=== PATIENT | male | born 1950 | race Caucasian/White ===

== ENCOUNTER → 2020-07-15 13:42 | Outpatient (BNVA) | payer BC, SELFPAY | PROVIDERS: PCP Internal Medicine; Visit Provider Urology | DX: Z76.89 Persons encountering health services in other specified circumstances (principal) ==

== ENCOUNTER 2022-02-26 06:43 | Outpatient (REF) | payer BC, SELFPAY ==
[2022-02-26 11:29] LABS: MANUAL DIFF FLAG NO
[2022-02-26 11:30] LABS: Basophils Absolute Auto 0.1 X10*3/uL (0.0-0.2); Basophils Percent Auto 0.8 % (0-2); Eosinophils Absolute Auto 0.3 X10*3/uL (0.0-0.4); Eosinophils Percent Auto 4.1 % (0-4); Hematocrit 46.1 % (42.0-52.0); Hemoglobin 15.4 g/dl (14.0-18.0); Imm Gran Abs Auto 0.03 X10*3/uL (0.00-0.03); Imm Gran Pct Auto 0.4 % (0.0-0.4); Lymphocytes Absolute Auto 0.8 X10*3/uL (1.2-4.9); Lymphocytes Percent Auto 11.1 % (20-40); Mean Corpuscular HGB Conc 33.4 g/dl (31.0-36.0); Mean Corpuscular Hemoglobin 30.5 pg (27.0-33.0); Mean Corpuscular Volume 91.3 fL (80.0-98.0); Mean Platelet Volume 10.7 fL (9.4-12.4); Monocytes Absolute Auto 0.7 X10*3/uL (0.1-1.2); Monocytes Percent Auto 8.8 % (2-11); Neutrophils Absolute Auto 5.6 x10*3/uL (2.0-8.3); Neutrophils Percent Auto 74.8 % (45-73); Platelet Count 257 X10*3/uL (160-400); Red Blood Count 5.05 X10*6/uL (4.60-5.80); Red Cell Distribution Width 12.4 % (11.0-16.0); White Blood Count 7.5 X10*3/uL (4.8-10.8)
[2022-02-26 11:50] LABS: Alanine Aminotransferase 15 U/L (0-40); Alkaline Phosphatase 82 U/L (39-117); Anion Gap 12 (12-20); Aspartate Amino Transferase 17 U/L (5-37); Bilirubin Total 1.6 mg/dL (0.0-1.0); Blood Urea Nitrogen 24 mg/dL (9-16); Calcium 9.1 mg/dL (8.4-10.2); Carbon Dioxide 27 mmol/L (22-29); Chloride 107 mmol/L (96-108); Cholesterol 181 mg/dL; Estimated Glomerular Filt Rate > 60; Glucose Fasting 102 mg/dL (60-99); HDL Cholesterol 71 mg/dL; LDL Cholesterol Calculated 97 mg/dl; Potassium 4.1 mmol/L (3.3-5.1); Sodium 142 mmol/L (135-145); Total Protein 6.8 g/dL (6.5-8.0); Triglycerides 66 mg/dL
== END 2022-02-26 06:44 | disposition home or self-care (01) ==
LOC: HO.HMGCLDS 06:43
PROVIDERS: PCP Internal Medicine; Visit Provider Internal Medicine
DX: I10 Essential (primary) hypertension (principal); I25.10 Atherosclerotic heart disease of native coronary artery without angina pectoris; I25.2 Old myocardial infarction
CPT/HCPCS: 36415; 80053; 80061; 85025

== ENCOUNTER 2022-08-27 07:32 | Outpatient (REF) | payer MEDICARE, SELFPAY ==
[2022-08-27 11:56] LABS: Alanine Aminotransferase 18 U/L (0-40); Anion Gap 13 (12-20); Aspartate Amino Transferase 22 U/L (5-37); Blood Urea Nitrogen 25 mg/dL (9-16); Calcium 9.4 mg/dL (8.4-10.2); Carbon Dioxide 30 mmol/L (22-29); Chloride 104 mmol/L (96-108); Cholesterol 146 mg/dL; Estimated Glomerular Filt Rate > 60; Glucose Fasting 91 mg/dL (60-99); HDL Cholesterol 63 mg/dL; LDL Cholesterol Calculated 72 mg/dl; Sodium 143 mmol/L (135-145); Triglycerides 59 mg/dL
== END 2022-08-27 07:33 | disposition home or self-care (01) ==
LOC: HO.HMGCLDS 07:32
PROVIDERS: PCP Internal Medicine; Visit Provider Internal Medicine
DX: E78.5 Hyperlipidemia, unspecified (principal); I10 Essential (primary) hypertension
CPT/HCPCS: 36415; 80048; 80061; 82550; 84450; 84460

== ENCOUNTER 2022-09-02 11:21 | Outpatient (AMB) | payer BC, SELFPAY ==
--- NOTE | 2022-09-02 11:43 | A.OFFPC_ITS ---
Vital Signs 09/02/22 11:44 Height 5 ft 6 in Weight 111 lb BMI 17.9 BP 150/96 H Blood Pressure Location Rt brachial Position Sitting Pulse 75 Pulse Source Pulse Oximeter Pulse Oximetry (%) 99 Oxygen Delivery Method Room Air Intake Visit Reasons: follow up labs Intake Note: Pt is here today for a follow up visit on labs. Allergies lisinopril Allergy (Unknown, Verified 01/06/23 12:57) dizziness Medication List - Last Reconciled 09/02/22 by Hui Carbajal MD amlodipine 10 mg PO DAILY atorvastatin 40 mg PO DAILY pindolol 5 mg PO DAILY Tobacco use date assessed: 05/26/22 HPI follow up labs HPI Details 73-year-old male with hypertension, dysl ipidemia, and history of coronary artery disease status post [place] in the past, here today for follow-up. He has been taking metoprolol succinate ER 50 mg daily and pindolol 5 mg once a day for his blood pressure in addition to a baby aspirin daily, with blood pressure still not at goal. He denies any chest pain, no headache no fever, no shortness of breath or weakness. [facility] Medical History (Updated 08/07/23 @ 02:29 by Hui Carbajal MD) Colonoscopy refused Dyslipidemia History of myocardial infarction CAD (coronary artery disease), [place] coronary artery Essential hypertension Bladder calculi Complex renal cyst Surgical History History of lithotripsy Family History Father CVA (cerebral vascular accident) Essential hypertension Atrial fibrillation Cardiovascular disease Mother Cardiovascular disease Diabetes mellitus Paternal Grandfather FHx: early [place] Social History Housing: House Patient Tobacco Use Status: Never used Tobacco e-Cigarette/Vaping Use: Never Used Current occupational status: employed Cognitive needs: No Hearing needs: No Vision needs: Yes Questionnaire PHQ-9 Over the last 2 weeks, how often have you been bothered by any of the following problems? Depression Screening Interpretation: Negative Source: Developed by Drs. Dmitri Villa, Kathy Cunningham, Brian Tse and colleagues, with an educational miky from [employer]. Thrive Questionnaire Date Thrive assessed: 02/25/22 FELICIA-7 AMB Questionnaire FELICIA-7 Date FELICIA - 7 assessed: 02/25/22 Source: Developed by Drs. Dmitri Villa, Kathy Cunningham, Brian Tse and colleagues, with an educational miky from [employer]. Review of Systems Const Denies chills, Denies fatigue, Denies fever(s) and Denies weakness Eyes Denies change in vision ENT Denies dizziness Card Denies syncope and Denies dyspnea Resp Denies cough and Denies dyspnea GI Denies abdominal pain, Denies change in bowel habits and Denies heartburn Reports no additional complaints Musc Reports no additional complaints Skin/Breast Reports system reviewed and no additional complaints, except as documented Neuro Denies dizziness, Denies syncope and Denies weakness Psych Reports no additional complaints Endo Denies fatigue Aleks/Lymph Reports no additional complaints Aller/Immun Reports no additional complaints Physical exam (Primary Care) Vital Signs: Last Vital Signs Pulse 75 09/02/22 11:44 BP 150/96 H 09/02/22 11:44 Pulse Ox 99 09/02/22 11:44 Oxygen Delivery Method Room Air 09/02/22 11:44 BMI result Body Mass Index 17.9 Tobacco/Smoking Status: Tobacco use Status Tobacco use date assessed 05/26/22 09/02/22 11:47 Patient Tobacco Use Status Never used Tobacco 09/02/22 11:47 e-Cigarette/Vaping Use Never Used 09/02/22 11:47 Depression Screening Interpretation: Negative Thrive Assessment: Date of Thrive Assessment Date Thrive assessed 02/25/22 09/02/22 11:47 Advance Care Planning discussion: Declined forms Const General: cooperative, comfortable, no acute distress and alert Nutritional Appearance: average body habitus Orientation/consciousness: patient oriented x3 HENMT Face and sinus: Yes face symmetric Mouth: Normal oral and palatal mucosa present and moist mucous membranes Eyes General: appearance normal, both eyes and all related structures Neck Neck: Yes full ROM, Yes no lymphadenopathy and Yes supple Thyroid: Thyroid normal Carotids: no bruits Resp Effort & Inspection: normal respiratory effort and able to speak in complete sentences Auscultation: clear to auscultation bilaterally Cardio Rate: regular rate Rhythm: regular rhythm Heart sounds: S1 normal heart sound present and S2 normal heart sound present GI Inspection: Yes normal to inspection Palpation (GI): Soft to palpation, nontender, no guarding and no masses Other: Patient declined exam General: Yes no CVA tenderness Back/Spine/Pelvis Back: no CVA tenderness and No back tenderness Skin General skin exam: no rashes or lesions noted Neuro General: patient oriented x3, gait normal, moves all extremities, Normal light touch and pain sensation, no focal motor deficits and CN's II-XI intact bilaterally Extrem General: Yes normal to inspection, Yes full ROM, Yes no joint enlargement, Yes no clubbing, cyanosis or edema, Yes no pedal edema, Yes no calf tenderness and Yes normal gait Psych Appearance: grossly normal Mental Status: mental status grossly normal Speech and movement: Normal speech and movement present Affect: normal affect Results Reviewed Results Reviewed: ENTERED: 08/27/22 YAYA VILLA: ORDERED: Met Prof Fast, AST, ALT, CK Total, Lipid Panel Test Result Flag Reference Site Sodium 143 135-145 mmol/L Potassium 4.0 3.3-5.1 mmol/L CL 104 96-108 mmol/L CO2 30 H 22-29 mmol/L Gap 13 12-20 BUN 25 H 9-16 mg/dL Creat 0.99 0.5-1.4 mg/dL EGFR > 60 NOTE: For -[place] individuals, multiply the result by 1.210. Chronic Kidney Disease: Estimated GFR < 60 mL/min/1.73m2 Severe Kidney Disease: Estimated GFR < 15 mL/min/1.73m2 FBS 91 60-99 mg/dL CA 9.4 8.4-10.2 mg/dL AST (GOT) 22 5-37 U/L ALT (GPT) 18 0-40 U/L CK Total 92 38-174 U/L Triglyceride 59 mg/dL Desirable Triglyceride: less than 150 mg/dL Borderline High Triglyceride 150-199 mg/dL High Triglyceride: 200-499 mg/dL Very High Triglyceride: greater than or equal to 5OO mg/dL Chol 146 mg/dL Desirable Cholesterol: less than 200 mg/dL Borderline High Cholesterol: 200-239 mg/dL High Cholesterol: greater than 239 mg/dL LDL Calculated 72 mg/dl Desirable LDL: less than 100 mg/dL Near Optimal/Above Optimal LDL: 110-129 mg/dL Borderline High LDL: 130-159 mg/dL High LDL: 160-189 mg/dL Very High LDL: greater than or equal to 190 mg/dL HDL 63 mg/dL Desirable HDL: greater than 40 mg/dL Assessment and Plan Assessment & Plan (1) Dyslipidemia: Code(s): E78.5 - Hyperlipidemia, unspecified Plan: Latest fasting lipids showed results within normal limits. Continued on atorvastatin 40 mg daily, and stressed importance of following low-cholesterol diet and getting regular exercise. (2) Uncontrolled hypertension: Code(s): I10 - Essential (primary) hypertension Plan: Blood pressure still remains elevated. Will continue on amlodipine 5 mg daily. And pindolol 5 mg once a day (3) CAD (coronary artery disease), [place] coronary artery: Code(s): I25.10 - Atherosclerotic heart disease of [place] coronary artery without angina pectoris Qualifiers: [place] vs. transplanted heart: [place] heart Associated angina: without angina Qualified Code(s): I25.10 - Atherosclerotic heart disease of [place] coronary artery without angina pectoris Plan: Start aspirin 81 mg daily, stressed importance of getting blood pressure and cholesterol levels under good control Orders: Orders Lipid Panel 3 Months E78.5 - Hyperlipidemia, unspecified, I10 - Essential (primary) hypertension, I25.10 - Atherosclerotic heart disease of [place] coronary artery without angina pectoris Alanine Aminotransferase 3 Months E78.5 - Hyperlipidemia, unspecified, I10 - Essential (primary) hypertension, I25.10 - Atherosclerotic heart disease of [place] coronary artery without angina pectoris Aspartate Amino Transferase 3 Months E78.5 - Hyperlipidemia, unspecified, I10 - Essential (primary) hypertension, I25.10 - Atherosclerotic heart disease of [place] coronary artery without angina pectoris Basic Metabolic Panel Fasting 3 Months E78.5 - Hyperlipidemia, unspecified, I10 - Essential (primary) hypertension, I25.10 - Atherosclerotic heart disease of [place] coronary artery without angina pectoris Vitamin D 25-OH Total 3 Months E78.5 - Hyperlipidemia, unspecified, I10 - Essential (primary) hypertension, I25.10 - Atherosclerotic heart disease of [place] coronary artery without angina pectoris Medications: New aspirin (Adult Low Dose Aspirin) 81 mg PO DAILY 90 tabs 4RF Changed From amlodipine 10 mg PO DAILY 30 tabs 2RF To amlodipine 5 mg PO BID 60 tabs 5RF From amlodipine 5 mg PO BID 60 tabs 5RF To amlodipine 5 mg PO BID 180 tabs 4RF 90 days Refilled pindolol 5 mg PO DAILY 30 tabs 5RF pindolol 5 mg PO DAILY 90 tabs 3RF Coding Level of Care Code Est Pt Level 4 (60870) Diagnoses Dyslipidemia E78.5 Uncontrolled hypertension I10 Coronary artery disease involving [place] coronary artery of [place] heart without angina pectoris I25.10 [place] vs. transplanted heart: [place] heart Associated angina: without angina Additional Codes Vital Signs *Quality* - Advance Care Planning discussion: Declined forms ([id number])
[2022-09-02 11:44] VITALS: BP 150/96; PULSE 75; O2SAT 99; BMI 17.9
== END 2022-09-02 12:29 | disposition home or self-care (01) ==
LOC: HO.HMGC 11:21
PROVIDERS: PCP Internal Medicine; Visit Provider Internal Medicine
DX: E78.5 Hyperlipidemia, unspecified (principal); I10 Essential (primary) hypertension; I25.10 Atherosclerotic heart disease of native coronary artery without angina pectoris; Z00.00 Encounter for general adult medical examination without abnormal findings
CPT/HCPCS: 1124F; 99214